=== PATIENT | male | born 1985 | race Caucasian/White ===

== ENCOUNTER → 2024-10-07 | Outpatient (CLI) | payer MEDICAID ==
[2024-10-07 13:40] VITALS: BP 123/81; PULSE 68; RESP 16; TEMP 98
--- NOTE | 2024-10-07 14:13 | P.SLEEP ---
History of Present Illness DATE: 10/07/2024 CONSULTATION/NEW PATIENT EVALUATION HISTORY OF PRESENT ILLNESS/SLEEP-WAKE EVALUATION: 39-year-old gentleman had been evaluated in the sleep center for possible obstructive sleep apnea hypopnea syndrome. SLEEP SCHEDULE: Usually sleep schedule from 11 PM to 7:45 AM on weekdays and from 1112:30 until 910 AM on weekend. FALLING ASLEEP: Sometimes patient has difficulties to fall asleep. DURING SLEEP: Patient snores and wakes up from sleep up to 8 times with 2 episodes of nocturia. No history of hypnogogical hallucinations, sleep paralysis, or cataplexy. DURING THE DAY/WAKE STATE: In the morning patient wake up tired, has episodes of irritability and depression. [place] sleepiness scale is increased to 12. Usually patient does not take naps. PAST MEDICAL HISTORY: Allergy, history of kidney disease. PAST SURGICAL HISTORY: Hernia repair. MEDICATIONS: None at the present time. SOCIAL HISTORY: Please see below. FAMILY HISTORY: Please see below. REVIEW OF SYSTEMS: []. No fevers. No double vision. No recent chest pain. No shortness of breath. No abdominal pain. No bleeding episodes. No blood in urine. No seizure episodes. PHYSICAL EXAMINATION: GENERAL: A pleasant patient without any distress. VITAL SIGNS: Please see below, weight 201 pounds, BMI 28.8. HEENT: PERRLA, EOMI. Evaluation of oropharynx showed tongue protrudes midline, low position of soft palate Mallampati 3, retrognathia 2 mm, restriction of nasal breathing. NECK: Supple. No JVD. Thyroid is not palpable. 15.5 inches in circumference. LUNGS: Clear to percussion and to auscultation. Good air exchange. No wheezing or rhonchi. HEART: S1, S2 regular. No murmurs, gallops or rubs. ABDOMEN: Soft and nontender. Bowel sounds are present. No organomegaly appreciated. EXTREMITIES: No clubbing or cyanosis. 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 Cranial nerves 2 to 7 intact. There is no fasciculation or atrophy noted. No focal deficits observed. ASSESSMENT: 1. Snoring, multiple awakenings from sleep, low position of soft palate Mallampati 3, retrognathia 2 mm, restriction of nasal breathing, sleepiness with [place] Sleepiness Scale 12. Obstructive sleep apnea hypopnea syndrome. 2. Restriction of nasal breathing. 3. History of allergy. 4. Status post hernia repair. PLAN: 1. Polysomnography for evaluation of patient's breathing during sleep. 2. Following plan after reading sleep study. 3. Preferable position during sleep on the side. 4. No driving if patient feels any sleepiness. Patient is aware of civil and criminal liability for unsafe driving. 5. Sleep hygiene with regular sleep time for at least 7.5-8 hours. 6. Watching weight. Thank you very much for referring this patient for consultation. Sincerely, Bhupinder Arnold MD, PhD, FAASM. Diplomat of [place] [employer], Sleep Medicine Board by [place] [employer] [place] [employer] [facility] [place] cc: Eileen Lyons MD Past Medical History Past Medical History: Hyperlipidemia Additional Past Medical History / Comment(s): Allergies, history of Kidney Diasease History of Any Multi-Drug Resistant Organisms: None Reported Past Surgical History: Hernia Repair Past Anesthesia/Blood Transfusion Reactions: No Reported Reaction Past Psychological History: Depression Smoking Status: Former smoker Additional Past Alcohol Use History / Comment(s): smoked weed every night for 3 years. Quit a month ago Past Drug Use History: Marijuana - Past Family History Mother Family Medical History: Cancer Brother(s) Family Medical History: Cancer Physical Exam Vitals: Vital Signs Temp Pulse Resp BP Pulse Ox 10/07/24 13:38 98 F 68 16 123/81 100 Intake and Output 10/06/24 10/07/24 10/07/24 22:59 06:59 14:59 Other: Weight 91.172 kg Sleep Note - Sleep Data ESS Total: 12 - Sleep Note Sleep Note: Temperature: 98 F Pulse Rate: 68 Respiratory Rate: 16 Blood Pressure: 123/81 SpO2: 100 Height: 5 ft 10 in Weight: 91.172 kg BMI: Neck Circumference: 15.2
== END ==
LOC: 3 N SLEEP 13:21
PROVIDERS: ATTEND Internal Medicine
DX: G47.33 Obstructive sleep apnea (adult) (pediatric) (principal); R06.89 Other abnormalities of breathing; Z48.815 Encounter for surgical aftercare following surgery on the digestive system
CPT/HCPCS: 99202

== ENCOUNTER → 2024-10-25 | Outpatient (CLI) | payer MEDICAID ==
--- NOTE | 2024-10-25 11:23 | XR ---
EXAMINATION TYPE: XR shoulder complete LT DATE OF EXAM: 10/25/2024 COMPARISON: NONE CLINICAL INDICATION: Male, 39 years old with history of M25.512 PAIN IN LEFT SHOULDER; TECHNIQUE: Three views are submitted. FINDINGS: The osseous structures are intact. There is no acute fracture or dislocation. The AC joint is maint ained. IMPRESSION: 1. No acute process. [facility], , 10/25/2024 11:21 AM
== END | disposition home or self-care (01) ==
LOC: RADXRMAIN 10:51
PROVIDERS: ATTEND Internal Medicine
DX: M25.512 Pain in left shoulder (principal)

== ENCOUNTER → 2024-12-07 | Outpatient (CLI) | payer MEDICAID ==
--- NOTE | 2024-12-08 14:28 | MR ---
EXAMINATION TYPE: MR shoulder LT wo con DATE OF EXAM: 12/07/2024 9:45 PM COMPARISON: Plain film. CLINICAL INDICATION: Male, 39 years old with history of M25.512; PHH, left shoulder pain from working out TECHNIQUE: Multi planar, multi sequence imaging was performed of the shoulder including: Axial and coronal niles n density fat-saturated sequences, T2 fat-saturated sagittal sequence, and T1-weighted imaging. No G adolinium was given. left shoulder pain from working out FINDINGS: Supraspinatus tendon: Increased signal within the tendon near its insertion. Infraspinatus tendon: Articular surface tear measuring 4 x 3 x 7mm with increased signal within t he tendon itself. Subscapularis tendon: Intrasubstance versus bursal surface subscapularis tear near its insertion measuring 7 x 8 mm. Teres minor tendon: Intact Long head biceps tendon: Intact, appropriately positioned within the bicipital groove. Normal ins ertion at the bicipital anchor. Acromioclavicular joint: Mild osteoarthrosis. Normal subacromial space. No effusion. Glenohumeral joint: Normal joint space and alignment. Normal articular cartilage. No effusion. Glenoid labrum : Anterior labral defect best appreciated on series 701 image 18 . Muscle volume: Normal. Bone marrow: Mild bony edema within the adjoining acromion and distal clavicle. Soft tissues: Unremarkable. Joint/bursal fluid: None IMPRESSION: 1. Supraspinatus tendinosis. 2. Infraspinatus articular surface partial-thickness tear with tendinosis. 3. Subscapularis partial thickness bursal surface sutures/intrasubstance tear near its insertion 4. Anterior labral tear suggested a nonarthrographic technique. 5. Mild acromioclavicular joint arthropathy. [facility], , 12/08/2024 2:25 PM
== END | disposition home or self-care (01) ==
LOC: RADMRIMAIN 21:45
PROVIDERS: ATTEND Internal Medicine
DX: M67.814 Other specified disorders of tendon, left shoulder (principal); M19.012 Primary osteoarthritis, left shoulder; M25.512 Pain in left shoulder

== ENCOUNTER → 2024-12-08 | Outpatient (CLI) | payer MEDICAID ==
[2024-12-08 16:45] VITALS: BP 114/68; PULSE 57; TEMP 97.9
--- NOTE | 2024-12-08 17:29 | P.PROGSL ---
Subjective DATE: 12/08/2024 FOLLOW UP VISIT. Patient returned to sleep center for follow-up visit discussed results of sleep study and following plan. I discussed results of sleep study with patient in details. No significant respiratory abnormalities have been documented during the polysomnogram. Apnea hypopnea index was only 1.1. Lowest oxygen level was 90%, which is normal. No periodic limb movements have been documented. Patient continued to have symptoms of excessive daytime sleepiness. Today [place] Sleepiness Scale is 8, which is in acceptable range, but patient trying to use marijuana to prevent sleepiness during the day. I discussed with the patient possibility to proceed with multiple sleep latency test for objective evaluation symptoms of excessive daytime sleepiness to exclude or confirm hypersomnia and narcolepsy type II. MEDICATIONS: Marijuana occasionally During physical exam: GENERAL: A pleasant patient without any distress. VITAL SIGNS: Please see below, weight 201 pounds. HEENT: PERRLA, EOMI. NECK: Supple. No JVD. LUNGS: Clear to percussion and to auscultation. Good air exchange. No wheezing or rhonchi. HEART: S1, S2 regular. ABDOMEN: Soft and nontender. EXTREMITIES: No clubbing or cyanosis. 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 No focal deficit. Impressions: 1. No significant respiratory abnormalities have been documented during the sleep study, normal oxygenation during sleep. 2. No significant periodic limb movements have been documented during the sleep test.. 3. Patient continued to have some symptoms of excessive daytime sleepiness. Differential diagnosis may include hypersomnia and narcolepsy type II. 4. History of allergy. 5. Restriction of nasal breathing. 6. Status post hernia repair. Plan: 1. Sleep hygiene with regular time in bed for at least 8 hours. 2. Precautions related to driving. No driving if feel any sleepiness. Patient is aware about civil and criminal liability for unsafe driving, promised to follow recommendations. 3. We will proceed with multiple sleep latency test if patient will continue to have symptoms of excessive daytime sleepiness. 4. Follow up visit in 6-8 months or earlier if patient has any problems. Thank you very much for allowing me to participate in the management of your patient. Bhupinder Arnold MD, PhD, FAASM. Diplomat of [place] [employer], Sleep Medicine Board by [place] [employer] [facility] [place] cc: Eileen Lyons MD Objective - Vital Signs Vital Signs: Vital Signs Temp 97.9 F 12/08/24 16:44 Pulse 57 L 12/08/24 16:44 Resp BP 114/68 12/08/24 16:44 Pulse Ox 99 12/08/24 16:44 FiO2 Intake & Output 12/07/24 12/08/24 12/08/24 18:59 06:59 18:59 Weight 91.172 kg
== END ==
LOC: 3 N SLEEP 16:29
PROVIDERS: ATTEND Internal Medicine
DX: R40.0 Somnolence (principal); R06.89 Other abnormalities of breathing; Z98.890 Other specified postprocedural states
CPT/HCPCS: 99212